=== PATIENT | male | born 1965 | race Caucasian/White ===

== ENCOUNTER 2017-06-22 20:50 | Emergency (ER) | payer OTHER ==
[2017-06-22 21:25] LABS: ADD MAN DIFF? NO
[2017-06-22] MEDS: LIDO:MAALOX:DONNATAL 1:1:1 15 ML SINGLE DOSE SWSW (21:29)
[2017-06-22 21:30] LABS: BASO % 1 % (0-3); BILIRUBIN,URINE NEGATIVE (NEG); CLARITY,URINE CLEAR; EOS # 0.5 x10^3/uL (0.0-0.7); EOS % 7 % (0-3); GLUCOSE,URINE NEGATIVE (NEG); HEMATOCRIT 43.8 % (39.0-53.0); HEMOGLOBIN 15.1 g/dL (13.0-17.5); LYMPH # 2.9 x10^3/uL (1.0-4.8); LYMPH % 38 % (24-48); MEAN CORPUSCULAR HEMOGLOBIN 34 pg (25-35); MEAN CORPUSCULAR HGB CONC 35 g/dL (31-37); MEAN CORPUSCULAR VOLUME 98 fL (79-100); MONO # 0.6 x10^3/uL (0.0-1.1); MONO % 8 % (0-9); NEUT # 3.6 x10^3uL (1.8-7.7); NEUT % 47 % (31-73); NITRITE,URINE NEGATIVE (NEG); PH,URINE 5.5; PLATELET COUNT 291 x10^3/uL (140-400); PROTEIN,URINE NEGATIVE (NEG-TRACE); RED CELL DISTRIBUTION WIDTH 13.1 % (11.5-14.5); UROBILINOGEN,URINE 0.2 mg/dL (0.2 mg/dL); WHITE BLOOD COUNT 7.6 x10^3/uL (4.0-11.0)
[2017-06-22] MEDS: FAMOTIDINE 20 MG/2 ML VIAL IVP (21:30)
[2017-06-22] MEDS: IV NORMAL SALINE 1000ML BAG 1,000 ML IV (21:30)
[2017-06-22] MEDS ORDERED: CONTRAST GIVEN MC (21:30)
[2017-06-22 21:39] LABS: BACTERIA,URINE 0 /HPF (0-FEW); COLOR,URINE STRAW; RBC,URINE 0 /HPF (0-2); WBC,URINE 0 /HPF (0-4)
[2017-06-22 21:45] LABS: ANION GAP 9 (6-14); BLOOD UREA NITROGEN 8 mg/dL (8-26); BUN/CREATININE RATIO 10 (6-20); CALCIUM 8.7 mg/dL (8.5-10.1); CARBON DIOXIDE 28 mmol/L (21-32); CHLORIDE 102 mmol/L (98-107); CREATININE 0.8 mg/dL (0.7-1.3); GFR 102.3; GLUCOSE 101 mg/dL (70-99); POTASSIUM 3.8 mmol/L (3.5-5.1); SODIUM 139 mmol/L (136-145)
[2017-06-22 21:52] LABS: ALK PHOS 38 U/L (46-116); ALT (SGPT) 60 U/L (16-63); AST (SGOT) 31 U/L (15-37); LIPASE 228 U/L (73-393); TOTAL BILIRUBIN 0.4 mg/dL (0.2-1.0); TOTAL PROTEIN 8.2 g/dL (6.4-8.2)
[2017-06-22 21:54] LABS: LACTIC ACID 1.3 mmol/L (0.4-2.0)
[2017-06-22] MEDS: IOHEXOL 300 MG/ML 100ML VIAL. IV (22:00)
== END 2017-06-22 22:55 | disposition home or self-care (01) ==
LOC: ER 20:50
DX: K92.2 Gastrointestinal hemorrhage, unspecified (principal); K21.0 Gastro-esophageal reflux disease with esophagitis; Z91.018 Allergy to other foods
CPT/HCPCS: 36415; 74177; 80053; 81001; 83605; 83690; 85025; 96360; 96361; 96374; 99285-25; J7030; Q9967; S0028